=== PATIENT | female | born 1970 | race Caucasian/White ===

== ENCOUNTER 2016-07-01 09:24 | Emergency (ER) | payer OTHER, BC ==
[~2016-07-01 09:24] MED LIST: /MOM400 PO; DOCU10ELUD PO; FLEXIRIL PO; Flexeril PO; LIDO1DIS2 TD; MILKSUS5 PO; NO HOME MEDS; PERC7.5T12 PO
[2016-07-01] MEDS ORDERED: PERCOCET 5MG/325MG TAB As Ordered ONE (09:41)
--- NOTE | 2016-07-01 10:13 | REP ---
CT Head without contrast HISTORY: Trauma COMPARISON: None There is no intraparenchymal hemorrhage, acute infarct, mass or midline shift. The ventricular system is normal in appearance. There is no extra cerebral collection. There is no fracture. The visualized sinuses are clear. IMPRESSION: There is no intracranial lesion. Signed by Sohail Recinos MD 07/01/2016 10:05 A
--- NOTE | 2016-07-01 10:51 | REP ---
LEFT HIP/PELVIS, THREE VIEW: HISTORY: Trauma. There is no acute fracture or dislocation. The joint spaces are normal in appearance. IMPRESSION: There is no acute fracture or dislocation. Signed by Sohail Recinos MD 07/01/2016 10:53 A
--- NOTE | 2016-07-01 12:53 | EDDOCDS ---
Physician Documentation [facility] Name: Julissa Clements Age: 46 yrs Sex: Female : 1970 Arrival Date: 07/01/2016 Time: 09:24 Bed 15 Private MD: Disposition: 07/01/16 12:07 Discharged to Home/Self Care. Impression: Contusion of left hip. - Condition is Stable. - Discharge Instructions: Elastic Bandage and RICE, Hip Pain. - Prescriptions for Naprosyn 500 mg Oral Tablet - take 1 tablet by ORAL route 2 times per day take with food; 30 tablet. - Medication Reconciliation, Local Pharmacy Hours form. - Follow up: Private Physician; When: Call to arrange an appointment. - Problem is new. - Symptoms have improved. Historical: - Allergies: no known allergies; - Home Meds: 1. none - PMHx: none; - PSHx: ruptured ovarian cyst repair; - Social history: Smoking status: Patient states was never smoker of tobacco. No barriers to communication noted, The patient speaks fluent Turkish, Speaks appropriately for age. - : The pt / caregiver states he / she is not on anticoagulants. Home medication list is obtained from the patient. - Exposure Risk Screening:: None identified. 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 9 in. (175.26 cm) (R); Pain 7/10; 09:57 Pulse 74 MON; Pulse Ox 96% ; ead 12:09 BP 134 / 60; Pulse 67; Resp 20 S; Pulse Ox 99% on R/A; Pain 8/10; ms2 09:35 Body Mass Index 31.01 (95.25 kg, 175.26 cm) ead 12:09 8/10 pain to head and 6/10 pain to left hip area ms2 MDM: 09:32 oxyCODONE-acetaminophen 5 mg-325 mg 1 tabs PO once; with sip only ordered. sd1 09:33 CT Head Without Contrast Ordered. EDMS 09:34 Hip,AP,LAT to include Pelvis Ordered. EDMS 10:49 Financial registration complete. lg 10:58 [facility] Payment Agreement was scanned into [employer] and attached to record. lg 11:[facility] sd1 11:34 Recheck B/P ordered. sd1 Administered Medications: 09:44 Drug: oxyCODONE-acetaminophen 1 tabs [oxycodone-acetaminophen 5 mg-325 mg tablet (1 ead tabs)] Route: PO; Signatures: Dispatcher [employer] EDHillary Luna MD MD sd1 John Paul Espino RN RN ms2 Prabha Coy, Reg Reg lg Nikki Foote RN RN ead The chart was reviewed and I authenticate all verbal orders and agree with the evaluation and treatment provided.Attachments: 10:58 [facility] Payment Agreement lg MTDD
--- NOTE | 2016-07-01 12:53 | EDDOCDS ---
Nurse's Notes [facility] Name: Julissa Clements Age: 46 yrs Sex: Female : 1970 Arrival Date: 07/01/2016 Time: 09:24 Bed 15 Private MD: Diagnosis: Contusion of left hip Presentation: 07/01 09:26 Presenting complaint: EMS states: pt slipped on ice getting out of vehicle, hit head on ead running board, pt states she does not remember hitting the pavement, but remembers falling. EMS report left pupil non-reactive, pt reports left eye is blurry. Pt c/o left hip pain and head pain. Incident occurred approx 45 minutes ago. Presenting complaint: Patient states: pt denies neck, back, or abdominal pain. Adult Sepsis Screening: The patient does not have new or worsening altered mentation. Patient's respiratory rate is less than 22. Systolic blood pressure is greater than 100. Patient has a qSOFA score of 0- Negative Sepsis Screen. Suicide/Homicide risk assessment- the patient denies having any suicidal and/or homicidal ideations and does not present with any other emotional, behavioral or mental health complaints. Status: Patient is not a water service dispatcher or dependent. Transition of care: patient was not received from another setting of care. 09:26 Method Of Arrival: Ambulance ead 09:26 Acuity: GABRIELLE Level 4 ead Triage Assessment: 09:35 General: Appears in no apparent distress, well nourished, well groomed, Behavior is ead appropriate for age, cooperative, pleasant. Pain: Location: face, scalp and left hip Pain currently is 7 out of 10 on a pain scale. The patient is triaged at the bedside. See Assessment in Nurses Notes section of ED record. Neurological: Level of Consciousness is awake, alert, obeys commands, Oriented to person, place, time. Cardiovascular: Chest pain is denied. Respiratory: Airway is patent Respiratory effort is even, unlabored. Derm: Skin is pink, warm & dry. Musculoskeletal: Reports pain in left hip. 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 none - PMHx: none; - PSHx: ruptured ovarian cyst repair; - Social history: Smoking status: Patient states was never smoker of tobacco. No barriers to communication noted, The patient speaks fluent Upper Sorbian, Speaks appropriately for age. - : The pt / caregiver states he / she is not on anticoagulants. Home medication list is obtained from the patient. - Exposure Risk Screening:: None identified. Screenin:38 Screening information is obtained from the patient. Fall risk: No risks identified. ead Assistance ADL's: requires no assistance with activities of daily living. Abuse/DV Screen: The patient / caregiver reports he/she is: not in a situation that causes fear, pain or injury. Nutritional screening: No deficits noted. Advance Directives: Currently, there is no health care proxy. There is no active DNR order. There is no living will. There is no Power of [place] Clerk. home support is adequate. Assessment: 10:59 General: Appears in no apparent distress, Behavior is appropriate for age, cooperative. ead Neurological: Level of Consciousness is awake, alert, Oriented to person, place, time. Respiratory: Airway is patent Respiratory effort is even, unlabored. Derm: Skin is pink, warm & dry. 12:00 General: Appears in no apparent distress, up and ambulated well per order---favors left ms2 hip slightly . Behavior is cooperative. Neurological: Level of Consciousness is awake, alert, obeys commands. Respiratory: Airway is patent Respiratory effort is even, unlabored, Respiratory pattern is regular, symmetrical. GI: Abdomen is flat, non- distended. Derm: Skin is pink, warm & dry. Musculoskeletal: Range of motion intact in all extremities. Vital Signs: 09:35 BP 159 / 112; Pulse 77; Resp 16; Pulse Ox 100% on R/A; Weight 95.25 kg (R); Height 5 ead ft. 9 in. (175.26 cm) (R); Pain 7/10; 09:57 Pulse 74 MON; Pulse Ox 96% ; ead 12:09 BP 134 / 60; Pulse 67; Resp 20 S; Pulse Ox 99% on R/A; Pain 8/10; ms2 09:35 Body Mass Index 31.01 (95.25 kg, 175.26 cm) ead 12:09 8/10 pain to head and 6/10 pain to left hip area ms2 Vitals: 09:24 Log In Time N/A - ambulance arrival. ead ED Course: 09:24 Patient visited by Ginger Schneider, Agricultural Education Teacher. deg 09:24 Patient moved to Waiting deg 09:25 Patient moved to 15 kcs 09:28 Hillary Caicedo MD is Attending Physician. sd1 09:28 Patient visited by Hillary Caicedo MD. sd1 09:35 Triage Initiated ead 09:40 Patient visited by Nikki Foote,RN. ead 10:33 CT Head Without Contrast Returned. EDMS 10:47 Patient name changed from Julissa\S\P\S\Tyree\S\ to Julissa\S\A\S\Tyree. EDMS 10:56 Patient visited by Nikki Foote,LYRIC. ead 10:58 [facility] Payment Agreement was scanned into [employer] and attached to record. lg 11:19 Hip,AP,LAT to include Pelvis Returned. EDMS 11:27 Patient visited by Shahid Tejada PCA. jlf 11:46 John Paul Espino,RN is Primary Nurse. ms2 12:03 Patient visited by John Paul Espino RN. ms2 12:13 The patient / caregiver is instructed regarding the plan of care and ED course. ms2 12:13 No IV's were initiated during this patient's visit. No procedures done that require ms2 assistance. Administered Medications: 09:44 Drug: oxyCODONE-acetaminophen 1 tabs [oxycodone-acetaminophen 5 mg-325 mg tablet (1 ead tabs)] Route: PO; Order Results: Radiology Order: CT Head Without Contrast Test: CT Head Without Contrast REASON FOR EXAMINATION: Trauma; CT Head without contrast; ; HISTORY: Trauma; ; COMPARISON: None; ; There is no intraparenchymal hemorrhage, acute infarct, mass or midline shift.; The ventricular system is normal in appearance. There is no extra cerebral; collection. There is no fracture. The visualized sinuses are clear.; ; IMPRESSION: There is no intracranial lesion.; ; ; ; ; Signed by; Sohail Recinos MD 07/01/2016 10:05 A; Radiology Order: Hip,AP,LAT to include Pelvis Test: Hip,AP,LAT to include Pelvis REASON FOR EXAMINATION: Trauma; LEFT HIP/PELVIS, THREE VIEW:; ; HISTORY: Trauma.; ; There is no acute fracture or dislocation. The joint spaces are normal in; appearance.; ; IMPRESSION:; ; There is no acute fracture or dislocation.; ; ; Signed by; Sohail Recinos MD 07/01/2016 10:53 A; Outcome: 12:07 Discharge ordered by Provider. sd1 12:53 Patient left the ED. ms2 Signatures: Dispatcher [employer] EDHillary Luna MD MD sd1 Lu Shukla, RN RN kcs Ginger Schneider, Agricultural Education Teacher Unit deg John Paul Espino RN RN ms2 Prabha Coy, Joshua Reg Shahid Glez, REHABILITATION CLERK REHABILITATION CLERK Nikki Calderon RN RN ead MTDD
--- NOTE | 2016-07-03 13:54 | EDDOCDS ---
Physician Documentation [facility] Name: Julissa Clements Age: 46 yrs Sex: Female : 1970 Arrival Date: 07/01/2016 Time: 09:24 Bed 15 Private MD: Disposition: 07/01/16 12:07 Discharged to Home/Self Care. Impression: Contusion of left hip. - Condition is Stable. - Discharge Instructions: Elastic Bandage and RICE, Hip Pain. - Prescriptions for Naprosyn 500 mg Oral Tablet - take 1 tablet by ORAL route 2 times per day take with food; 30 tablet. - Medication Reconciliation, Local Pharmacy Hours form. - Follow up: Private Physician; When: Call to arrange an appointment. - Problem is new. - Symptoms have improved. Historical: - Allergies: no known allergies; - Home Meds: 1. none - PMHx: none; - PSHx: ruptured ovarian cyst repair; - Social history: Smoking status: Patient states was never smoker of tobacco. No barriers to communication noted, The patient speaks fluent Irish, Speaks appropriately for age. - Family history: Not pertinent. - : The pt / caregiver states he / she is not on anticoagulants. Home medication list is obtained from the patient. - Exposure Risk Screening:: None identified. 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 9 in. (175.26 cm) (R); Pain 7/10; 09:57 Pulse 74 MON; Pulse Ox 96% ; ead 12:09 BP 134 / 60; Pulse 67; Resp 20 S; Pulse Ox 99% on R/A; Pain 8/10; ms2 09:35 Body Mass Index 31.01 (95.25 kg, 175.26 cm) ead 12:09 8/10 pain to head and 6/10 pain to left hip area ms2 MDM: 09:32 oxyCODONE-acetaminophen 5 mg-325 mg 1 tabs PO once; with sip only ordered. sd1 09:33 CT Head Without Contrast Ordered. EDMS 09:34 Hip,AP,LAT to include Pelvis Ordered. EDMS 10:49 Financial registration complete. lg 10:58 [facility] Payment Agreement was scanned into [employer] and attached to record. lg 11:34 Misc. Nursing Order ordered. sd1 11:34 Recheck B/P ordered. sd1 15:13 T-Sheet-- Draft Copy was scanned into [employer] and attached to record. gb Administered Medications: 09:44 Drug: oxyCODONE-acetaminophen 1 tabs [oxycodone-acetaminophen 5 mg-325 mg tablet (1 ead tabs)] Route: PO; Signatures: Dispatcher [employer] EDHillary Luna MD MD sd1 John Paul EspinoRN RN ms2 Karen Campbell, Reg Reg gb Prabha Coy, Reg Reg lg Nikki Foote RN RN ead The chart was reviewed and I authenticate all verbal orders and agree with the evaluation and treatment provided.Attachments: 10:58 [facility] Payment Agreement lg 15:13 T-Sheet-- Draft Copy gb Chart Complete MTDD
--- NOTE | 2016-07-03 13:54 | EDDOCDS ---
Nurse's Notes [facility] Name: Julissa Clements Age: 46 yrs Sex: Female : 1970 Arrival Date: 07/01/2016 Time: 09:24 Bed 15 Private MD: Diagnosis: Contusion of left hip Presentation: 07/01 09:26 Presenting complaint: EMS states: pt slipped on ice getting out of vehicle, hit head on ead running board, pt states she does not remember hitting the pavement, but remembers falling. EMS report left pupil non-reactive, pt reports left eye is blurry. Pt c/o left hip pain and head pain. Incident occurred approx 45 minutes ago. Presenting complaint: Patient states: pt denies neck, back, or abdominal pain. Adult Sepsis Screening: The patient does not have new or worsening altered mentation. Patient's respiratory rate is less than 22. Systolic blood pressure is greater than 100. Patient has a qSOFA score of 0- Negative Sepsis Screen. Suicide/Homicide risk assessment- the patient denies having any suicidal and/or homicidal ideations and does not present with any other emotional, behavioral or mental health complaints. Status: Patient is not a telephone answering service operator or dependent. Transition of care: patient was not received from another setting of care. 09:26 Method Of Arrival: Ambulance ead 09:26 Acuity: GABRIELLE Level 4 ead Triage Assessment: 09:35 General: Appears in no apparent distress, well nourished, well groomed, Behavior is ead appropriate for age, cooperative, pleasant. Pain: Location: face, scalp and left hip Pain currently is 7 out of 10 on a pain scale. The patient is triaged at the bedside. See Assessment in Nurses Notes section of ED record. Neurological: Level of Consciousness is awake, alert, obeys commands, Oriented to person, place, time. Cardiovascular: Chest pain is denied. Respiratory: Airway is patent Respiratory effort is even, unlabored. Derm: Skin is pink, warm & dry. Musculoskeletal: Reports pain in left hip. 12:53 Pt Declines HIV testing. 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 none - PMHx: none; - PSHx: ruptured ovarian cyst repair; - Social history: Smoking status: Patient states was never smoker of tobacco. No barriers to communication noted, The patient speaks fluent German, Speaks appropriately for age. - Family history: Not pertinent. - : The pt / caregiver states he / she is not on anticoagulants. Home medication list is obtained from the patient. - Exposure Risk Screening:: None identified. Screenin:38 Screening information is obtained from the patient. Fall risk: No risks identified. ead Assistance ADL's: requires no assistance with activities of daily living. Abuse/DV Screen: The patient / caregiver reports he/she is: not in a situation that causes fear, pain or injury. Nutritional screening: No deficits noted. Advance Directives: Currently, there is no health care proxy. There is no active DNR order. There is no living will. There is no Power of Water Resource Engineer. home support is adequate. Assessment: 10:59 General: Appears in no apparent distress, Behavior is appropriate for age, cooperative. ead Neurological: Level of Consciousness is awake, alert, Oriented to person, place, time. Respiratory: Airway is patent Respiratory effort is even, unlabored. Derm: Skin is pink, warm & dry. 12:00 General: Appears in no apparent distress, up and ambulated well per order---favors left ms2 hip slightly . Behavior is cooperative. Neurological: Level of Consciousness is awake, alert, obeys commands. Respiratory: Airway is patent Respiratory effort is even, unlabored, Respiratory pattern is regular, symmetrical. GI: Abdomen is flat, non- distended. Derm: Skin is pink, warm & dry. Musculoskeletal: Range of motion intact in all extremities. 12:53 Adult Sepsis Screening: The patient does not have new or worsening altered mentation. ms2 Patient's respiratory rate is less than 22. Systolic blood pressure is greater than 100. Patient has a qSOFA score of 0- Negative Sepsis Screen. General: Appears in no apparent distress. Pain: Pain currently is 6 out of 10 on a pain scale. Neurological: Level of Consciousness is awake, alert, obeys commands. Respiratory: No deficits noted. Airway is patent Respiratory effort is even, unlabored, Respiratory pattern is regular, symmetrical. GI: Abdomen is flat, non- distended. Derm: Skin is pink, warm & dry. Musculoskeletal: Range of motion intact in all extremities. Vital Signs: 09:35 BP 159 / 112; Pulse 77; Resp 16; Pulse Ox 100% on R/A; Weight 95.25 kg (R); Height 5 ead ft. 9 in. (175.26 cm) (R); Pain 7/10; 09:57 Pulse 74 MON; Pulse Ox 96% ; ead 12:09 BP 134 / 60; Pulse 67; Resp 20 S; Pulse Ox 99% on R/A; Pain 8/10; ms2 09:35 Body Mass Index 31.01 (95.25 kg, 175.26 cm) ead 12:09 8/10 pain to head and 6/10 pain to left hip area ms2 Vitals: 09:24 Log In Time N/A - ambulance arrival. ead ED Course: 09:24 Patient visited by Ginger Schneider, Media Assistant. deg 09:24 Patient moved to Waiting deg 09:25 Patient moved to 15 kcs 09:28 Hillary Caicedo MD is Attending Physician. sd1 09:28 Patient visited by Hillary Caicedo MD. sd1 09:35 Triage Initiated ead 09:40 Patient visited by Nikki Foote RN. ead 10:33 CT Head Without Contrast Returned. EDMS 10:47 Patient name changed from Julissa\S\P\S\Tyree\S\ to Julissa\S\A\S\Tyree. EDMS 10:56 Patient visited by Nikki Foote,LYRIC. ead 10:58 [facility] Payment Agreement was scanned into [employer] and attached to record. lg 11:19 Hip,AP,LAT to include Pelvis Returned. EDMS 11:27 Patient visited by Shahid Tejada PCA. jlf 11:46 John Paul Espino,RN is Primary Nurse. ms2 12:03 Patient visited by John Paul Espino,LYRIC. ms2 12:13 The patient / caregiver is instructed regarding the plan of care and ED course. ms2 12:13 No IV's were initiated during this patient's visit. No procedures done that require ms2 assistance. 15:13 T-Sheet-- Draft Copy was scanned into [employer] and attached to record. gb Administered Medications: 09:44 Drug: oxyCODONE-acetaminophen 1 tabs [oxycodone-acetaminophen 5 mg-325 mg tablet (1 ead tabs)] Route: PO; Order Results: Radiology Order: CT Head Without Contrast Test: CT Head Without Contrast REASON FOR EXAMINATION: Trauma; CT Head without contrast; ; HISTORY: Trauma; ; COMPARISON: None; ; There is no intraparenchymal hemorrhage, acute infarct, mass or midline shift.; The ventricular system is normal in appearance. There is no extra cerebral; collection. There is no fracture. The visualized sinuses are clear.; ; IMPRESSION: There is no intracranial lesion.; ; ; ; ; Signed by; Sohail Recinos MD 07/01/2016 10:05 A; Radiology Order: Hip,AP,LAT to include Pelvis Test: Hip,AP,LAT to include Pelvis REASON FOR EXAMINATION: Trauma; LEFT HIP/PELVIS, THREE VIEW:; ; HISTORY: Trauma.; ; There is no acute fracture or dislocation. The joint spaces are normal in; appearance.; ; IMPRESSION:; ; There is no acute fracture or dislocation.; ; ; Signed by; Sohail Recinos MD 07/01/2016 10:53 A; Outcome: 12:07 Discharge ordered by Provider. sd1 12:53 Patient left the ED. ms2 12:53 Discharge Assessment: patient administered narcotics - no. The following High Risk ms2 Discharge criteria are identified: None. Discharged to home ambulatory, with significant other. Condition: stable. Discharge instructions given to patient, Instructed on discharge instructions, follow up and referral plans. medication usage, Demonstrated understanding of instructions, medications, Pt was receptive of discharge instructions/ teaching. Prescriptions given X one faxed. No special radiology studies were completed. Property sent home with patient. Signatures: Dispatcher [employer] EDWY Hillary Caicedo MD MD sd1 Lu Shukla, Ginger Castaneda RN, Media Assistant Unit deg John Paul Espino RN RN ms2 Karen Campbell, Reg Reg gb Prabha Coy, Reg Reg lg Shahid Tejada, ELECTRIC POWERLINE EXAMINER ELECTRIC POWERLINE EXAMINER Nikki Calderon RN RN schuyler Corrections: (The following items were deleted from the chart) 16:38 12:53 Pain: Pain ms2 ms2 Chart Complete MTDD
--- NOTE | 2016-07-03 13:54 | EDDOCDS ---
Physician Documentation [facility] Name: Julissa Clements Age: 46 yrs Sex: Female : 1970 Arrival Date: 07/01/2016 Time: 09:24 Bed 15 Private MD: Disposition: 07/01/16 12:07 Discharged to Home/Self Care. Impression: Contusion of left hip. - Condition is Stable. - Discharge Instructions: Elastic Bandage and RICE, Hip Pain. - Prescriptions for Naprosyn 500 mg Oral Tablet - take 1 tablet by ORAL route 2 times per day take with food; 30 tablet. - Medication Reconciliation, Local Pharmacy Hours form. - Follow up: Private Physician; When: Call to arrange an appointment. - Problem is new. - Symptoms have improved. Historical: - Allergies: no known allergies; - Home Meds: 1. none - PMHx: none; - PSHx: ruptured ovarian cyst repair; - Social history: Smoking status: Patient states was never smoker of tobacco. No barriers to communication noted, The patient speaks fluent Kazakh, Speaks appropriately for age. - Family history: Not pertinent. - : The pt / caregiver states he / she is not on anticoagulants. Home medication list is obtained from the patient. - Exposure Risk Screening:: None identified. 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 9 in. (175.26 cm) (R); Pain 7/10; 09:57 Pulse 74 MON; Pulse Ox 96% ; ead 12:09 BP 134 / 60; Pulse 67; Resp 20 S; Pulse Ox 99% on R/A; Pain 8/10; ms2 09:35 Body Mass Index 31.01 (95.25 kg, 175.26 cm) ead 12:09 8/10 pain to head and 6/10 pain to left hip area ms2 MDM: 09:32 oxyCODONE-acetaminophen 5 mg-325 mg 1 tabs PO once; with sip only ordered. sd1 09:33 CT Head Without Contrast Ordered. EDMS 09:34 Hip,AP,LAT to include Pelvis Ordered. EDMS 10:49 Financial registration complete. lg 10:58 [facility] Payment Agreement was scanned into [employer] and attached to record. lg 11:34 Misc. Nursing Order ordered. sd1 11:34 Recheck B/P ordered. sd1 15:13 T-Sheet-- Draft Copy was scanned into [employer] and attached to record. gb Administered Medications: 09:44 Drug: oxyCODONE-acetaminophen 1 tabs [oxycodone-acetaminophen 5 mg-325 mg tablet (1 ead tabs)] Route: PO; Signatures: Dispatcher [employer] EDHillary Luna MD MD sd1 John Paul EspinoRN RN ms2 Karen Campbell, Reg Reg gb Prabha Coy, Reg Reg lg Nikki Foote RN RN ead The chart was reviewed and I authenticate all verbal orders and agree with the evaluation and treatment provided.Attachments: 10:58 [facility] Payment Agreement lg 15:13 T-Sheet-- Draft Copy gb Chart Complete MTDD
== END 2016-07-01 12:53 | disposition home or self-care (01) ==
LOC: M ED 09:24
DX: S70.02XA Contusion of left hip, initial encounter (principal); S00.03XA Contusion of scalp, initial encounter; W01.10XA Fall on same level from slipping, tripping and stumbling with subsequent striking against unspecified object, initial encounter; Y92.89 Other specified places as the place of occurrence of the external cause; Y93.89 Activity, other specified; Y99.0 Civilian activity done for income or pay

== ENCOUNTER 2016-08-20 23:49 | Emergency (ER) | payer BC, OTHER ==
[~2016-08-20] VITALS: Ht 182.9 cm; Wt 104.3 kg
[2016-08-20 23:50] VITALS: BP 143/71
[2016-08-21] MEDS ORDERED: ONDANSETRON 4 MG ORAL DISINTEGRATING TAB (S0181) PO ONE ×2 (00:45→01:15)
[2016-08-21] MEDS ORDERED: ZOFR4TAB3 PO (01:02)
== END 2016-08-21 01:31 | disposition home or self-care (01) ==
LOC: M ED 08-21 01:28
DX: R11.2 Nausea with vomiting, unspecified (principal); M25.569 Pain in unspecified knee; G43.909 Migraine, unspecified, not intractable, without status migrainosus; Z87.42 Personal history of other diseases of the female genital tract; Z79.899 Other long term (current) drug therapy; Z88.8 Allergy status to other drugs, medicaments and biological substances

== ENCOUNTER 2016-08-24 18:44 | Emergency (ER) | payer BC ==
[~2016-08-24] VITALS: Ht 180.3 cm; Wt 104.3 kg
[~2016-08-24 18:44] MED LIST changes: +ZOFR4TAB3 PO
[2016-08-24] MEDS ORDERED: CEFT500T3 (18:55)
[2016-08-24] MEDS ORDERED: METOCLOPRAMIDE INJ 10MG/2ML VIAL (J2765) IV ONE (20:00)
[2016-08-24] MEDS ORDERED: PANTOPRAZOLE 40MG INJ (PROTONIX) (C9113) IV ONE (20:00)
[2016-08-24 20:31] LABS: BASO % 0.3 % (0.0-1.0); EOS # 0.1 K/mm3 (0.0-0.50); EOS % 0.7 % (0.0-3.0); LARGE UNSTAINED CELL # 0.1 K/mm3 (0.0-0.4); LYMPH # 1.3 K/mm3 (1.5-4.5); LYMPH % 14.7 % (24.0-44.0); MEAN CORPUSCULAR HEMOGLOBIN 24.4 pg (27.0-33.0); MEAN CORPUSCULAR HGB CONC 30.1 g/dl (32.0-36.5); MONO # 0.4 K/mm3 (0.0-0.8); MONO % 4.9 % (0.0-5.0); NEUTROPHILS # 6.7 K/mm3 (1.8-7.7); NEUTROPHILS % 78.4 % (36.0-66.0); PLATELET COUNT, AUTOMATED 283 k/mm3 (150-450); RED CELL DISTRIBUTION WIDTH 14.8 % (11.5-14.5); WHITE BLOOD COUNT 8.6 K/mm3 (4.0-10.0)
[2016-08-24 20:55] LABS: ALBUMIN 4.3 GM/DL (3.2-5.2); ALBUMIN/GLOBULIN RATIO 1.26 (1.00-1.93); ALKALINE PHOSPHATASE 52 U/L (45-117); ALT/SGPT 12 U/L (12-78); AMYLASE 40 U/L (25-115); ANION GAP 11 MEQ/L (8-16); AST/SGOT 13 U/L (15-37); BILIRUBIN,DIRECT 0.2 MG/DL (0.0-0.2); BILIRUBIN,TOTAL 0.5 MG/DL (0.2-1.0); BLOOD UREA NITROGEN 19 MG/DL (7-18); CALCIUM LEVEL 9.2 MG/DL (8.5-10.1); CARBON DIOXIDE LEVEL 27 MEQ/L (21-32); CHLORIDE LEVEL 103 MEQ/L (98-107); CREATININE FOR GFR 0.84 MG/DL (0.55-1.02); GLOMERULAR FILTRATION RATE > 60.0 (>58); GLUCOSE, FASTING 124 MG/DL (70-105); POTASSIUM SERUM 3.7 MEQ/L (3.5-5.1); SODIUM LEVEL 141 MEQ/L (136-145); TOTAL PROTEIN 7.7 GM/DL (6.4-8.2)
[2016-08-24] MEDS ORDERED: MACR100C3 PO (22:47)
[2016-08-24] MEDS ORDERED: PRIL20CA9 PO (22:47)
[2016-08-24] MEDS ORDERED: REGL10TA6 PO (22:47)
[2016-08-24] MEDS ORDERED: NITROFURANTOIN (MACROBID) 100 MG CAP PO ONE (23:00)
[2016-08-24 23:17] VITALS: BP 138/72
== END 2016-08-24 23:19 | disposition home or self-care (01) ==
LOC: M ED 20:02
DX: K29.70 Gastritis, unspecified, without bleeding (principal); N39.0 Urinary tract infection, site not specified; Z79.899 Other long term (current) drug therapy; Z88.8 Allergy status to other drugs, medicaments and biological substances
CPT/HCPCS: 80048; 80076; 81001; 82150; 83690; 85025; 87086; 96374; 96375; 99282; C9113; J2765

== ENCOUNTER → 2017-08-09 | Outpatient (REF) | payer BC ==
[2017-08-09 13:25] LABS: APPEARANCE, URINE CLEAR (CLEAR); BACTERIA, URINE AUTO NEGATIVE (NEGATIVE); BILIRUBIN, URINE AUTO NEGATIVE (NEGATIVE); BLOOD, URINE BLOOD 1+ (NEGATIVE); COLOR, URINE YELLOW (YELLOW); GLUCOSE, URINE (UA) AUTO NEGATIVE (NEGATIVE); KETONE, URINE AUTO NEGATIVE (NEGATIVE); LEUKOCYTE ESTERASE, URINE AUTO 2+ (NEGATIVE); MUCUS, URINE SMALL (NEGATIVE); NITRITE, URINE AUTO NEGATIVE (NEGATIVE); PROTEIN, URINE AUTO NEGATIVE (NEGATIVE); RBC, URINE AUTO 9 /HPF (0-3); SPECIFIC GRAVITY URINE AUTO 1.026 (1.002-1.035); SQUAMOUS EPITHELIAL CELL UR AU 1 /HPF (0-6); UROBILINOGEN, URINE AUTO 0.2 mg/dL (0.0-2.0); WBC, URINE AUTO 5 /HPF (0-3)
== END ==
LOC: M LAB REF 12:20
DX: N39.0 Urinary tract infection, site not specified (principal)
CPT/HCPCS: 81001

== ENCOUNTER 2019-07-26 16:33 | Emergency (ER) | payer BC, OTHER ==
[~2019-07-26] VITALS: Ht 175.3 cm; Wt 100.0 kg
[~2019-07-26 16:33] MED LIST changes: -/MOM400 PO; +CEFT500T3; -DOCU10ELUD PO; +DOCU5LIQ PO; +MACR100C43 PO; +MILK10SU PO; +PRIL20CA9 PO; +REGL10TA6 PO; +ZOFR4TAB14 PO; -ZOFR4TAB3 PO
[2019-07-26 16:45] VITALS: BP 156/80
--- NOTE | 2019-07-26 17:21 | REP ---
Clinical: Trauma . Comparison: 07/01/2016 . Findings: The ventricles, sulci, and cisterns are normal in position and appearance. Clement-white differentiation is maintained. No acute intracranial hemorrhage, mass/mass effect, pathology or trauma/injury. No evidence for acute infarction. No extra-axial fluid collection. Calvarium is intact. Paranasal sinuses and mastoid air cells are clear. Impression: Normal noncontrast head CT. No evidence for acute intracranial pathology or trauma/injury. Electronically Signed by Thad Curtis MD 07/26/2019 05:13 P
--- NOTE | 2019-07-26 17:23 | REP ---
Clinical: Trauma . Technique: Axial noncontrast images from the skull base to the thoracic inlet with coronal and sagittal re-formations Findings: Normal alignment and lordosis is maintained. Cervical vertebral bodies including transverse processes and spinous processes are intact and there is no evidence for acute fracture / compression injury or subluxation. Spinal canal is patent. Posterior elements are intact. Paravertebral soft tissues are normal. Impression: Normal noncontrast cervical spine CT. No evidence for acute pathology or trauma/injury. Electronically Signed by Thad Curtis MD 07/26/2019 05:14 P
--- NOTE | 2019-07-26 17:24 | REP ---
Clinical: Trauma. Technique: Axial images through the thoracic spine with coronal and sagittal re-formations. Findings: Alignment and kyphosis maintained. No acute fracture / compression injury or subluxation. Spinal canal is patent. Posterior elements and spinous processes are normal. Paravertebral soft tissues are unremarkable. Impression: Normal thoracic spine CT. No evidence for acute trauma/injury Electronically Signed by Thad Curtis MD 07/26/2019 05:15 P
[2019-07-26] MEDS ORDERED: NAPR-837 PO (17:35)
[2019-07-26] MEDS ORDERED: CYCL10TA PO (17:35)
== END 2019-07-26 18:09 | disposition home or self-care (01) ==
LOC: EDBD 16:33 → M ED 16:33
DX: S13.4XXA Sprain of ligaments of cervical spine, initial encounter (principal); V49.49XA Driver injured in collision with other motor vehicles in traffic accident, initial encounter; Y92.410 Unspecified street and highway as the place of occurrence of the external cause

== ENCOUNTER → 2020-07-14 | Outpatient (CLI) | payer SELFPAY ==
[~2020-07-14] MED LIST changes: +CYCL-707 PO; +NAPR-837 PO
== END ==
LOC: M LABSMTC 12:16
PROVIDERS: ATTEND Pediatrics
DX: Z20.822 Contact with and (suspected) exposure to COVID-19 (principal)
CPT/HCPCS: C9803; U0003

== ENCOUNTER 2024-03-08 09:10 | Emergency (ER) | payer OTHER, SELFPAY ==
[~2024-03-08] VITALS: Ht 175.3 cm; Wt 109.1 kg
[2024-03-08 09:13] VITALS: TEMP 97.5
[2024-03-08 09:46] LABS: BASO % 0.8 % (0.0-1.0); EOS # 0.2 10^3/uL (0.0-0.5); EOS % 3.1 % (0.0-3.0); HEMATOCRIT 27.2 % (36.0-47.0); HEMOGLOBIN 7.4 g/dl (12.0-15.5); LYMPH # 1.3 10^3/uL (1.5-5.0); MEAN CORPUSCULAR HEMOGLOBIN 18.1 pg (27.0-33.0); MEAN CORPUSCULAR HGB CONC 27.2 g/dl (32.0-36.5); MEAN CORPUSCULAR VOLUME 66.5 fl (80.0-96.0); MONO # 0.4 10^3/uL (0.0-0.8); MONO % 6.8 % (2.0-8.0); NEUTROPHILS # 3.2 10^3/uL (1.5-8.5); NEUTROPHILS % 63.1 % (36.0-66.0); PLATELET COUNT, AUTOMATED 233 10^3/uL (150-450); RED BLOOD COUNT 4.09 10^6/uL (4.00-5.40); WHITE BLOOD COUNT 5.1 10^3/uL (4.0-10.0)
[2024-03-08 09:57] LABS: INR 1.09; PARTIAL THROMBOPLASTIN TIME 25.4 SECONDS (24.8-34.2); PROTHROMBIN TIME 13.8 SECONDS (12.5-14.5)
[2024-03-08 10:12] LABS: FREE T4 1.08 NG/DL (0.89-1.76)
[2024-03-08 10:13] LABS: THYROID STIMULATING HORMONE 2.636 uIU/ML (0.55-4.78)
[2024-03-08 10:18] LABS: ALBUMIN 4.1 G/DL (3.2-5.2); ALKALINE PHOSPHATASE 49 U/L (46-116); ALT/SGPT 16 U/L (7.0-40); AST/SGOT 58 U/L (<34); BILIRUBIN,DIRECT 0.1 MG/DL (<0.4); BILIRUBIN,TOTAL 0.6 MG/DL (0.3-1.2); BLOOD UREA NITROGEN 16 MG/DL (9-23); CALCIUM LEVEL 9.4 MG/DL (8.5-10.1); CARBON DIOXIDE LEVEL 25 MMOL/L (20-31); CHLORIDE LEVEL 108 MMOL/L (98-107); CK-MB VALUE MASS < 1.0 NG/ML (<3.6); CPK CREATINE PHOSPHOKINASE 237 U/L (34-145); CREATININE FOR GFR 0.78 MG/DL (0.55-1.30); GLOMERULAR FILTRATION RATE > 60.0 (>51); GLUCOSE, FASTING 95 MG/DL (60-100); LIPASE 43 U/L (12-53); MB/CK RELATIVE INDEX 0.42 (< OR =4); POTASSIUM SERUM 5.3 MMOL/L (3.5-5.1); SODIUM LEVEL 139 MMOL/L (136-145); TOTAL PROTEIN 7.3 G/DL (5.7-8.2)
[2024-03-08] MEDS: ASPIRIN 81MG CHEW TABLET PO ONE (10:38)
[2024-03-08] MEDS ORDERED: ISOVUE-370 76% 100ML VIAL As Ordered ONE (10:43)
[2024-03-08] MEDS: KETOROLAC 30 MG/ML 1ML VIAL IV ONE (11:16)
[2024-03-08 11:24] LABS: CK-MB VALUE MASS < 1.0 NG/ML (<3.6)
[2024-03-08 11:26] LABS: CPK CREATINE PHOSPHOKINASE 186 U/L (34-145); IRON (FE) 11 UG/DL (50-170); MB/CK RELATIVE INDEX 0.53 (< OR =4); PERCENT SATURATION 2.6 % (13.2-45.0); TOTAL IRON BINDING CAPACITY 417 UG/DL (250-425)
[2024-03-08 11:28] LABS: FOLATE 16.76 NG/ML (>5.4); VITAMIN B12 LEVEL 489 PG/ML (211-911)
[2024-03-08 11:29] LABS: FERRITIN 1.3 NG/ML (7.3-270.7)
[2024-03-08] MEDS ORDERED: HOME MED LIST COMPLETE! XX SCH (12:05)
[2024-03-08] MEDS ORDERED: FERR325T3 PO (12:13)
[2024-03-08] MEDS ORDERED: KETO10TAB PO (12:13)
[2024-03-08 12:30] VITALS: BP 137/53; O2SAT 99
== END 2024-03-08 13:03 | disposition home or self-care (01) ==
LOC: M ED 09:10
DX: R09.1 Pleurisy (principal); D50.9 Iron deficiency anemia, unspecified; Z79.2 Long term (current) use of antibiotics
CPT/HCPCS: 71045; 71275; 80048; 80076; 82550; 82553; 82607; 82728; 82746; 83550; 83690; 83880; 84439; 84443; 84484; 85025; 85610; 85730; 93005; 93041; 94760; 96374; 99285; J1885; Q9967

== ENCOUNTER → 2024-12-20 | Outpatient (REF) | payer OTHER ==
[~2024-12-20] MED LIST changes: +FERR325T3 PO; +KETO10TAB PO
[2024-12-25 14:02] LABS: HPV APTIMA Not Detected (Not Detected)
== END ==
LOC: M PLALAB 14:39
PROVIDERS: ATTEND Obstetrics & Gynecology
DX: N93.9 Abnormal uterine and vaginal bleeding, unspecified (principal); Z12.4 Encounter for screening for malignant neoplasm of cervix; R87.610 Atypical squamous cells of undetermined significance on cytologic smear of cervix (ASC-US)
CPT/HCPCS: 87624; 88305; G0123

== ENCOUNTER → 2025-01-04 | Outpatient (CLI) | payer OTHER ==
[~2025-01-04] MED LIST changes: +FERROCITE PO; +IBUP80TA
[2025-01-04 12:26] LABS: ALT/SGPT 15.0 U/L (7.0-40); AST/SGOT 17.0 U/L (<34); CALCIUM LEVEL 8.6 MG/DL (8.5-10.1); CARBON DIOXIDE LEVEL 26.0 MMOL/L (20-31); CHLORIDE LEVEL 107.0 MMOL/L (98-107); CREATININE FOR GFR 0.84 MG/DL (0.55-1.30); GLOMERULAR FILTRATION RATE 82.5 (>51); POTASSIUM SERUM 4.6 MMOL/L (3.5-5.1); SODIUM LEVEL 146.0 MMOL/L (136-145)
[2025-01-04 12:27] LABS: APPEARANCE, URINE HAZY (CLEAR); BACTERIA, URINE AUTO 1+ (NEGATIVE); BILIRUBIN, URINE AUTO NEGATIVE (NEGATIVE); BLOOD, URINE BLOOD NEGATIVE (NEGATIVE); GLUCOSE, URINE (UA) AUTO NEGATIVE (NEGATIVE); KETONE, URINE AUTO NEGATIVE (NEGATIVE); LEUKOCYTE ESTERASE, URINE AUTO NEGATIVE (NEGATIVE); MUCUS, URINE SMALL (NEGATIVE); NITRITE, URINE AUTO NEGATIVE (NEGATIVE); PROTEIN, URINE AUTO NEGATIVE (NEGATIVE); RBC, URINE AUTO 0 /HPF (0-3); SPECIFIC GRAVITY URINE AUTO 1.020 (1.002-1.035); SQUAMOUS EPITHELIAL CELL UR AU 3 /HPF (0-6); UROBILINOGEN, URINE AUTO 0.2 mg/dL (0.0-2.0); WBC, URINE AUTO 0 /HPF (0-3)
[2025-01-04 12:32] LABS: BASO # 0.1 10^3/uL (0.0-0.2); BASO % 1.2 % (0.0-1.0); EOS # 0.2 10^3/uL (0.0-0.5); EOS % 4.7 % (0.0-3.0); LYMPH # 1.4 10^3/uL (1.5-5.0); LYMPH % 32.0 % (24.0-44.0); MONO # 0.3 10^3/uL (0.0-0.8); MONO % 7.0 % (2.0-8.0); NEUTROPHILS # 2.4 10^3/uL (1.5-8.5); NEUTROPHILS % 54.9 % (36.0-66.0); PLATELET COUNT, AUTOMATED 231 10^3/uL (150-450)
== END ==
LOC: M WUC 08:23
PROVIDERS: ATTEND Family Medicine
DX: D50.9 Iron deficiency anemia, unspecified (principal); N92.4 Excessive bleeding in the premenopausal period

== ENCOUNTER 2025-01-18 08:26 | Day surgery (SDC) | payer OTHER ==
[~2025-01-18] VITALS: Ht 172.7 cm; Wt 103.0 kg
[~2025-01-18 08:26] MED LIST changes: +HYDROmorphone HCL 2 MG/ML 1 ML VIAL As Ordered ONE; +KETOROLAC 30 MG/ML 1 ML VIAL As Ordered ONE; +LIDOCAINE 2% 100 MG/5 ML SDV (FOR ANES.) As Ordered ONE; +MIDAZOLAM INJ 2 MG/2 ML VIAL As Ordered ONE; +ONDANSETRON 4MG 2ML VIAL As Ordered ONE; +ROCURONIUM BROMIDE 50MG/5ML VIAL As Ordered ONE; +SUGAMMADEX SODIUM 500 MG/5 ML VIAL As Ordered ONE; +dexAMETHasone 4 MG/ML 1 ML VIAL As Ordered ONE
[2025-01-18] MEDS ORDERED: LR 1,000 ML IV SCH ×2 (08:50→11:45)
[2025-01-18 09:02] LABS: PLATELET COUNT, AUTOMATED 274 10^3/uL (150-450)
[2025-01-18] MEDS: SCOPOLAMINE 1MG TRANSDERMAL PATCH TOP ONE (09:04)
[2025-01-18] MEDS: ceFAZolin SOD 2 GM IV ONCE IV ONE (09:51)
[2025-01-18] MEDS ORDERED: ACETAMINOPHEN 1000MG/100ML IV BAG As Ordered ONE (10:05)
[2025-01-18] MEDS ORDERED: HYDROMORPHONE HCL 0.5 MG/0.5 ML SYRINGE IV PRN (11:45)
[2025-01-18 13:15] VITALS: BP 128/64; TEMP 97.2; O2SAT 100
[2025-01-18] MEDS ORDERED: PERCOCET 5MG/325MG TAB PO PRN ×2 (13:40)
[2025-01-18] MEDS ORDERED: KETOROLAC 30 MG/ML 1 ML VIAL IV SCH (17:00)
== END 2025-01-18 13:45 | disposition home or self-care (01) ==
LOC: M SDC 08:26
PROVIDERS: ATTEND Obstetrics & Gynecology
DX: N93.9 Abnormal uterine and vaginal bleeding, unspecified (principal); N80.03 Adenomyosis of the uterus; N72 Inflammatory disease of cervix uteri; N83.292 Other ovarian cyst, left side; N83.291 Other ovarian cyst, right side; D25.1 Intramural leiomyoma of uterus; D25.2 Subserosal leiomyoma of uterus; Z88.8 Allergy status to other drugs, medicaments and biological substances
CPT/HCPCS: 36415; 58571; 81025; 85027; 86850; 86900; 86901; 88307; J0131; J0665; J0690; J1100; J1171; J1885; J2250; J2405; J2765; J3010; S2900